=== PATIENT | male | born 1945 | race Caucasian/White ===

== ENCOUNTER 2017-03-08 14:28 | Emergency (ER) | payer MEDICARE ==
[~2017-03-08] VITALS: Ht 165.1 cm; Wt 93.5 kg
[2017-03-08 14:31] VITALS: Ht 165.1 cm; Wt 93.5 kg
[2017-03-08] MEDS ORDERED: CIPR500T4 PO (15:00)
[2017-03-08] MEDS ORDERED: DOCU-144 PO (15:00)
[2017-03-08] MEDS ORDERED: SENN-53 PO (15:00)
[2017-03-08] MEDS ORDERED: TAMS-14 PO (15:00)
[2017-03-08 15:24] VITALS: BP 144/81; PULSE 68; RESP 18
[2017-03-08] MEDS ORDERED: BENA10TA48 PO (15:35)
[2017-03-08] MEDS ORDERED: OMEP20CA16 PO (15:35)
[2017-03-08] MEDS ORDERED: LEVO100T87 PO (15:35)
[2017-03-08 15:47] LABS: ADD UMIC YES; URINE BILIRUBIN (Dip) NEGATIVE (NEGATIVE); URINE BLOOD (Dip) 3+ (NEGATIVE); URINE COLOR LT. YELLOW (YELLOW); URINE GLUCOSE (Dip) NEGATIVE (NEGATIVE); URINE KETONES (Dip) NEGATIVE (NEGATIVE); URINE LEUKOCYTE ESTERASE (Dip) NEGATIVE (NEGATIVE); URINE NITRITE (Dip) NEGATIVE (NEGATIVE); URINE TOTAL PROTEIN (Dip) NEGATIVE (NEGATIVE); URINE UROBILINOGEN (Dip) 0.2 E.U./dL (0.1-1.0)
[2017-03-08 16:10] LABS: BACTERIA,URINE FEW; URINE RBCS >50 /HPF (0)
[2017-03-08 16:11] LABS: TRANSITIONAL EPI CELLS,URINE FEW
--- NOTE | 2017-03-08 16:41 | ERD ---
ER Documentation Chief Complaint Date/Time DATE: 03/08/17 TIME: 16:38 Chief Complaint URINARY RETENTION AND CONSTIPATUION, HAS AP HPI Patient is a 72-year-old male with hypertension and thyroid disease who presents with abdominal pain. The patient says that he cannot urinate since this morning. He said that he could not have a bowel movement for the last few days. He has never had a prostate issue in the past. He denies fevers. He has had no treatment as of yet. Upon review of old medical records this is the patient's first visit to the ER. He says that his primary doctor is Dr. Robles. ROS All systems reviewed and are negative except as per history of present illness. Medications Home Meds Active Scripts Sennosides* (Senna Lax*) 8.6 Mg Tablet, 1 TAB PO DAILY, #30 TAB Prov:NICOLE QUINONES MD 03/08/17 Docusate Sodium* (Colace*) 100 Mg Capsule, 100 MG PO TID, #30 CAP Prov:NICOLE QUINONES MD 03/08/17 Ciprofloxacin Hcl* (Ciprofloxacin Hcl*) 500 Mg Tablet, 500 MG PO BID for 7 Days , TAB Prov:NICOLE QUINONES MD 03/08/17 Tamsulosin Hcl* (Flomax*) 0.4 Mg Cap.er.24h, 0.4 MG PO QPM, #30 CAP Prov:NICOLE QUINONES MD 03/08/17 Reported Medications Benazepril Hcl* (Benazepril Hcl*) 10 Mg Tablet, 10 MG PO DAILY, #30 TAB 03/08/17 Omeprazole* (Omeprazole*) 20 Mg Capsule.dr, 20 MG PO DAILY, #30 CAP 03/08/17 Levothyroxine Sodium* (Levothyroxine Sodium*) 100 Mcg Tablet, 100 MCG PO BEFORE BREAKFAST, #30 TAB 03/08/17 Allergies Allergies: Coded Allergies: No Known Allergy (Unverified , 03/08/17) PMhx/Soc Positive for hypertension and thyroid disease Hx Psychiatric Problems: No Hx Miscellaneous Medical Probl: No Hx Alcohol Use: No Hx Substance Use: No Hx Tobacco Use: No Smoking Status: Never smoker FmHx Family History: No diabetes Physical Exam Vitals Vital Signs Date Time Temp Pulse Resp B/P Pulse Ox O2 Delivery O2 Flow Rate FiO2 03/08/17 15:24 68 18 144/81 98 Room Air 03/08/17 14:40 71 20 139/89 100 Room Air 03/08/17 14:31 97.2 87 18 136/94 99 Physical Exam Const: Mild distress Head: Atraumatic Eyes: Normal Conjunctiva ENT: Normal External Ears, Nose and Mouth. Neck: Full range of motion..~ No meningismus. Resp: Clear to auscultation bilaterally Cardio: Regular rate and rhythm, no murmurs Abd: Soft, tenderness over the bladder with distended bladder Skin: No petechiae or rashes Back: No midline or flank tenderness Ext: No cyanosis, or edema Neur: Awake and alert : Uncircumcised male, no obvious testicular swelling or pain Results 24 hrs Laboratory Tests Test 03/08/17 15:00 Urine Color LT. YELLOW Urine Clarity SLIGHTLY CLOUDY Urine pH 6.0 Urine Specific [place] 1.010 Urine Ketones NEGATIVE Urine Nitrite NEGATIVE Urine Bilirubin NEGATIVE Urine Urobilinogen 0.2 E.U./dL Urine Leukocyte Esterase NEGATIVE Urine Microscopic RBC >50/HPF Urine Microscopic WBC 0-2/HPF Urine Transitional Epithelial Cells FEW Urine Bacteria FEW Urine Hemoglobin 3+ Urine Glucose NEGATIVE% Urine Total Protein NEGATIVE Procedures/MDM Patient is a 72-year-old male with hypertension and thyroid disease who presents with urinary retention. A Miramontes catheter was placed. The patient had 600 mL of urine that was obtained and he feels much better. A leg bag was applied. Urinalysis shows hematuria but no signs of acute cystitis at this time. Urine culture is pending. The patient will be given Flomax, Cipro, Colace, and senna. He is well-appearing on reevaluation. I believe outpatient management is appropriate but the patient should follow-up with a urologist within 24-48 hours. I have given him information for Dr. Abdullahi but he can follow -up with the urologist of his choice. The patient can return for any worsening symptoms. I doubt appendicitis, cholecystitis, pancreatitis, or bowel obstruction. Departure Diagnosis: Primary Impression: Urinary retention Additional Impression: Abdominal pain Abdominal location: lower abdomen, unspecified Qualified Code: R10.30 - Lower abdominal pain Condition: Fair Patient Instructions: Abdominal Pain, Urinary Retention, Male Referrals: JOSÉ MIGUEL ABDULLAHI MD Additional Instructions: SPECIALIST: YOU HAVE A MEDICAL CONDITION WHICH REQUIRES YOU TO SEE A SPECIALIST WITHIN THE NEXT 1-2 DAYS. PLEASE FOLLOW UP WITH YOUR PRIMARY PHYSICIAN FOR REFFERAL.IF YOU DO NOT HAVE A PRIMARY CARE PHYSICIAN AND/OR YOU CAN NOT AFFORD TO SEE A PHYSICIAN THE FOLLOWING RESOURCES HAVE BEEN SUPPLIED TO YOU. IT IS YOUR RESPONSIBILITY TO BE SEEN BY THE SPECIALIST NICOLE QUINONES MD March 08, 2017 16:41
== END 2017-03-08 16:15 | disposition home or self-care (01) ==
LOC: E/R 14:28
DX: R33.9 Retention of urine, unspecified (principal); R40.2252 Coma scale, best verbal response, oriented, at arrival to emergency department; R10.30 Lower abdominal pain, unspecified; I10 Essential (primary) hypertension; R40.2142 Coma scale, eyes open, spontaneous, at arrival to emergency department; R40.2362 Coma scale, best motor response, obeys commands, at arrival to emergency department
CPT/HCPCS: 81001; 81003; 87086